=== PATIENT | male | born 1965 | race African-American/Black ===

== ENCOUNTER 2017-04-04 01:12 | Emergency (ER) | payer MEDICAID ==
[~2017-04-04] VITALS: Ht 175.3 cm; Wt 129.0 kg
[~2017-04-04 01:12] MED LIST: AMLO10TA80 PO; ASPI-864 PO; ATEN100T PO; ATOR20TA65 PO; FURO40TA5 PO; ISOS30TA6 PO; LISI40TA4 PO
[2017-04-04] MEDS ORDERED: KETOROLAC 30MG/ML VIAL IM ONE (04:30)
[2017-04-04] MEDS ORDERED: ONDANSETRON 4MG ODT PO ONE (04:30)
[2017-04-04] MEDS ORDERED: KETOROLAC 30MG/ML VIAL IM SCH (04:32)
[2017-04-04 05:38] LABS: CHLORIDE 104 mEq/L (98-107); ETHANOL BLOOD 134 mg/dL
[2017-04-04] MEDS ORDERED: TRAMADOL 50MG TABLET PO ONE (07:15)
[2017-04-04 07:22] LABS: CLARITY URINE CLEAR (CLEAR); COLOR URINE YELLOW (YELLOW); KETONES URINE NEGATIVE (NEGATIVE); LEUKOCYTE ESTERASE URINE NEGATIVE (NEGATIVE); NITRITE URINE NEGATIVE (NEGATIVE); OCCULT BLOOD URINE NEGATIVE (NEGATIVE); PROTEIN URINE TRACE (NEGATIVE); SPECIFIC GRAVITY URINE 1.019 (1.005-1.030)
[2017-04-04 07:42] LABS: BASOPHILS % 0.6 % (0.0-2.0); EOSINOPHILS % 1.2 % (0.0-5.0); HEMATOCRIT. 42.1 % (42.0-52.0); HEMOGLOBIN. 13.9 g/dL (14.0-18.0); LYMPHOCYTES % 16.9 % (20.0-50.0); MEAN CORPUSCULAR HEMOGLOBIN 31.5 pg (28.0-32.0); MEAN CORPUSCULAR VOLUME 95.2 fL (80.0-94.0); MEAN PLATELET VOLUME 8.8 fl (7.4-10.4); MONOCYTES % 8.4 % (2.0-8.0); NEUTROPHILS % 72.9 % (40.0-76.0); PLATELET 236 x1000/uL (130-400); RED BLOOD CELL COUNT 4.42 mill/uL (4.7-6.1); RED CELL DISTRIBUTION WIDTH 13.5 % (11.6-14.6)
[2017-04-04 08:31] VITALS: BP 182/96
[2017-04-04 08:34] LABS: *AMPHETAMINES SCREEN URINE NEGATIVE (NEGATIVE); *BARBITURATES SCREEN URINE NEGATIVE (NEGATIVE); *BENZODIAZEPINES SCREEN URINE NEGATIVE (NEGATIVE); *COCAINE SCREEN URINE NEGATIVE (NEGATIVE); CANNABINOID URINE SCREEN NEGATIVE (NEGATIVE); METHADONE URINE SCREEN NEGATIVE (NEGATIVE); OPIATES URINE SCREEN NEGATIVE (NEGATIVE); PHENCYCLIDINE URINE SCREEN NEGATIVE (NEGATIVE)
== END 2017-04-04 08:55 | disposition home or self-care (01) ==
LOC: ER 01:12
DX: S82.831A Other fracture of upper and lower end of right fibula, initial encounter for closed fracture (principal); F10.20 Alcohol dependence, uncomplicated; R03.0 Elevated blood-pressure reading, without diagnosis of hypertension; J45.909 Unspecified asthma, uncomplicated; I50.9 Heart failure, unspecified; F17.200 Nicotine dependence, unspecified, uncomplicated; Z79.82 Long term (current) use of aspirin; W19.XXXA Unspecified fall, initial encounter; Y93.89 Activity, other specified; Y92.009 Unspecified place in unspecified non-institutional (private) residence as the place of occurrence of the external cause; Y99.8 Other external cause status
CPT/HCPCS: 29515; 36415; 73610; 80053; 80305; 81001; 82962; 85025; 96372; 99285; G0482; J1885; Q0162